=== PATIENT | female | born 1960 | race Caucasian/White ===

== ENCOUNTER 2022-09-29 14:03 | Outpatient (CLI) | payer BC, SELFPAY ==
--- OUTSIDE RECORDS SUMMARY | 2022-09-29 14:06 | XMS_ITS | Clinical Summary ---
:1960 Author Organization [facility] [place] [address] Care Team Providers Name Role Phone Ann Moseley Primary Care Provider Unavaila ble Allergies Active Allergy Reactions Severity Noted Date Comments Cefoxitin Hives Cephalosporins Hives 06/24/2007 Codeine Nausea And Vomiting 06/24/2007 Tioconazole Itching 11/05/2009 Morphine Hives, Itching 06/24/2007 Sulfa (Sulfonamide Other - Describe In 06/24/2007 Ot her reaction(s): Antibiotics) Comment Field Other (see comments) Blurred vision vision problem s Sulfamethoxazole-Trimethop Other - Describe In rim Comment Field Sulfasalazine Other - Describe In 06/24/2007 vision problems Comment Field Medications Medication Sig Dispensed Refills Start Date End Date Status FOLIC ACID 1 MG TAB take 1 tablet (1 0 06/24/2007 Active mg) by oral route once daily omega-3 fatty Take 1 capsule by 0 09/30/2010 Active acids-vitamin E (FISH mouth once daily. OIL) 1,000 mg Cap cholecalciferol Take 1,000 Units 0 Active (VITAMIN D3) 1,000 by mouth once unit capsule daily. ascorbic acid (VITAMIN Take 500 mg by 0 Active C) 500 mg tablet mouth once daily. vitamin e 400 unit Take 400 Units by 0 Active capsule mouth once daily. ibuprofen (ADVIL; Take 400 mg by 0 Active MOTRIN) 200 mg tablet mouth every 4 hours if needed. calcium carbonate-vit Take 1 Tablet by 180 Tablet 3 10/07/2021 Active D3, 600 mg-400 units, mouth 2 times (CALTRATE PLUS 600 daily. MG-400 UNIT TABLET) tabletIndications: Osteopenia, unspecified location methylphenidate HCl Take 1 tablet by 30 Tablet 0 10/07/2021 Active (RITALIN) 5 mg mouth once daily tabletIndications: as needed for Fatigue, unspecified fatigue. type, Systemic lupus erythematosus, unspecified SLE type, unspecified organ involvement status (HC) methylphenidate, 30-70 Take 1 Capsule 90 Capsule 0 10/07/2021 Active multiphase, (METADATE (20 mg) by mouth CD) 20 mg once daily. capsuleIndications: Systemic lupus erythematosus, unspecified SLE type, unspecified organ involvement status (HC) fluticasone Inhale 1 Puff by 180 Each 0 01/01/2022 Active propion-salmeteroL mouth 2 times (ADVAIR) 250-50 daily. mcg/Dose diskus inhalerIndications: Dry cough ketoconazole 2% 0 09/10/2021 Act pasquale shampoo (NIZORAL) 2 % shampoo clobetasol 0.05% 0 09/10/2021 Ac tive TOPICAL (TEMOVATE) 0.05 % external solution alendronate (Fosamax) Take 1 Tablet (70 13 Tablet 3 02/26/2022 Active 70 mg mg) by mouth once tabletIndications: a week in the Osteopenia, morning. Take on unspecified location empty stomach with full glass of water. Do not lie down for 1 hr. nitrofurantoin One tablet as 90 capsule. 1 02/26/2022 Active macrocrystaL needed after (Macrodantin) 50 mg intercourse capsuleIndications: Cystitis omeprazole (PRILOSEC) TAKE 1 CAPSULE 90 Capsule 3 02/26/2022 Active 40 mg Delayed-Release DAILY IF NEEDED capsuleIndications: Gastroesophageal reflux disease, unspecified whether esophagitis present traMADoL (ULTRAM) 50 Take one tablet 10 tablet. 0 02/26/2022 Active mg tabletIndications: by mouth once Migraine syndrome daily as needed for migraine traZODone (DESYREL) 50 Take 1-2 Tablets 90 Tablet 3 02/26/2022 Active mg tabletIndications: (50-100 mg) by Insomnia, unspecified mouth at bedtime. type Active Problems Problem Noted Date Special screening for malignant neoplasms, colon 08/05 Therapeutic opioid induced constipation 03/20/2016 Neck pain, acute 03/15/2016 Chest pain 05/16/2015 Steroid long-term use 09/06/2012 Symptomatic menopausal or female climacteric states Vaginitis and vulvovaginitis, unspecified 09/30/2010 Postmenopausal atrophic vaginitis 09/30/2010 Headache(784.0) 06/24/2007 Other chronic cystitis 06/24/2007 Lupus erythematosus, with steroid-dependence 6 Overview: Lupus. She has been managed by rheumatol eugene. Last follow-up 07/2020, note reviewed. She has been on plaquenil, prednisone and azathioprine in the past. Stopped due to side effects and managing symptoms a t this time. Has chronic fatigue and is on Metadate and prn Ritalin. Rheumatology recom Acute sinusitis, unspecified 06/23/2006 Polyp of colon Immunizations Name Administration Dates Next Due Influenza Virus, Unspecified 09/13/2014, 09/12/2014, 013 Influenza, IIV3 (Age >=3 years) 09/12/2014, 12/09/2012 Influenza, IIV4 09/13/2014, 12/09/2012 Pneumococcal Poly,23-Valent (Pneumovax) 10/07/2021 Tdap 06/27/2020, 09/30/2010 Zoster (Shingrix-RZV, recombinant) 10/29/2020, 06/27/2020 Zoster (Zostavax-ZVL, live) 11/07/2013 Family History Medical History Relation Name Comments Cancer-prostate Father Dementia Father Hypertension Father Cancer Maternal Grandfather Cancer Maternal Grandmother Cancer-ovarian Maternal Grandmother Dementia Mother Stroke Mother Heart Disease Paternal Grandfather Crohn's disease Sister 1 Thyroid Disease Sister 1 Other Sister 2 guilliene barre Asthma Son Cancer-breast No Family History Relation Name Status Comments Brother 1 Alive Brother 2 Alive Daughter 1 Alive Daughter 2 Alive Daughter 3 Alive Father Maternal Grandfather Maternal Grandmother Mother Paternal Grandfather Paternal Grandmother Sister 1 Alive Sister 2 Alive Son Alive Social History Tobacco Use Types Packs/Day Years Used Date Former Smoker Cigarettes 0.5 Quit: 03/14/19 89 Smokeless Tobacco: Never Used Tobacco Cessation: Counseling Given: Yes Alcohol Use Standard Drinks/Week Comments Yes 0 (1 standard drink = 0.6 oz pure alcoho l) Socially Alcohol Habits Answer Date Recorded How often do you have a drink containing alcohol? Not asked How many drinks containing alcohol do you have on a typical Not asked day when you are drinking? How often do you have six or more drinks on one occasion? No t asked Comment: Socially 09/13/2009 Sex Assigned at Date Recorded Not on file Obstetrics History Para Term AB IAB SAB Ectopic Multiple Living Live Births 3 3 2 1 0 0 0 0 1 4 4 Date Outcome GA Total Labor/2nd/3rd Weight Sex Delivery Anes PTL Reta A 1 A5 Name Clin Labor 11/26 Term 37w 3.43 kg F Jodee steff 0d (7 lb 9 ng y oz) 02/22 25w 0.68 kg M Jodee 0d (1 lb 8 ng oz) Comments: cerclage,classical c/s 02/22/1994 25w0d 0.74 kg (1 lb 10 oz) F Living raffi Comments: cerclage,classical c/s 03/06/2000 Term 38w0d 3.03 kg (6 lb 11 oz) F Living derrick Comments: with tubal ligtion Comments Twins Divya 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 07/03/2017 1:40 PM Last Filed Vital Signs Vital Sign Reading Time Taken Comments Blood Pressure 110/66 03/14/2022 11:14 AM CDT Pulse 80 03/14/2022 11:14 AM CDT Temperature 36.6 ??C (97.9 ??F) 06/27/2020 8:43 AM CDT Respiratory Rate 16 02/26/2022 11:45 AM CDT Oxygen Saturation 99% 08/05/2017 10:25 AM CDT Inhaled Oxygen Concentration - - Weight 62.2 kg (137 lb 3.2 oz) 03/14/2022 11:14 AM CDT Height 169 cm (5' 6.54) 10/07/2021 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 Body Mass Index 21.79 10/07/2021 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 Plan of Treatment Health Maintenance Due Date Last Done Comments COVID-19 vaccine series (#1) 02/26/1961 Influenza for age 50-64 07/31/2022 09/13/2014, 09/13/2014, 09/12/2014, Additional history exists Colonoscopy through age 75 08/05/2022 08/05/2017, , 10/24/2009 BMI (ht and wt on same day) for 10/07/2022 10/07/2021, 12/11/2019, age 18+ 06/27/2020, Additional history exists Depression screening for age 12+ 10/07/2022 10/07/2021, , 11/29/2018, Additional history exists Mammogram for age 45-75 10/07/2022 10/07/2021, 08/14/2020, 08/03/2019, Additional history exists Pap test for age 21-65 06/27/2025 06/27/2020, 06/27/2020, 07/03/2017, Additional history exists Lipids for age 45-75 10/07/2026 10/07/2021, 06/27/2020, 11/25/2018, Additional history exists Tetanus booster 06/27/2030 06/27/2020, 09/30/2010 Hepatitis C screening for age Completed 06/27/2020 18-79 Tdap Completed 06/27/2020, 09/30/2010 Zoster (shingles) series for age Completed 10/29/2020, , 50+ 11/07/2013 Results Not on filefrom Last 3 Months Insurance Payer Benefit Plan / Subscriber ID Effective Dates Phone Addre ss Type Group BLUE CROSS BLUE CROSS OF [id number] 2021-Present [address] [address] [place] [address] Advance Directives Latest Code Status on File Code Status Date Activated Date Inactivated Comments Full Code 08/05/2017 9:10 AM 08/06/2017 2:32 AM Full Code 03/15/2016 2:19 PM 03/19/2016 8:24 PM Full Code 05/16/2015 2:29 AM 05/16/2015 6:28 PM Code Status Discussion: Not Discussed Care Teams Shredding Specialist Relationship Specialty Start Date End Date Ann Moseley PA PCP - General Physician Oil Heat Technician
[2022-09-29 21:58] LABS: Chloride* 100 mmol/L (96-114); Potassium* 4.2 mmol/L (3.6-5.1); Sodium* 139 mmol/L (135-149)
[2022-09-29 22:01] LABS: Blood Urea Nitrogen* 14 mg/dL (7-30); Carbon Dioxide* 27 mmol/L (20-32); Creatinine* 0.6 mg/dL (0.5-1.5); Estimated Glomerular Filt Rate 101 ml/min; Glucose* 87 mg/dL (60-115)
[2022-09-29 22:02] LABS: Calcium* 9.8 mg/dL (8.4-10.6); Magnesium* 2.3 mg/dL (1.5-2.6)
== END 2022-09-29 14:04 | disposition home or self-care (01) ==
PROVIDERS: PCP Nurse Practitioner Family; Visit Provider Nurse Practitioner Family
DX: M79.606 Pain in leg, unspecified (principal)
CPT/HCPCS: 36415; 80048; 83735

== ENCOUNTER 2023-06-01 13:58 | Outpatient (CLI) | payer BC, SELFPAY ==
--- OUTSIDE RECORDS SUMMARY | 2023-06-01 14:00 | XMS_ITS | Continuity of Care Document ---
Author Name Unknown Organization [facility] Address [address] [address] [place] [address] Phone Care Team Providers Care Toy Designer Name Role Phone Stacie ALEX, Katherine Unavailable Unavaila ble Advance Directives Directive Yes / No Effective Date File Name No Information Encounters Encounter Description Practice Location Reason(s) For Visit Diagnoses Date Provider Providers Copied on Encounter [facility], [address] [address], [place], [place], [id number], [place] tel:[phone] [facility] No Information Stacie Murphy . [address] [facility], [facility] [address], [place], [place], [id number], [place]. tel:[phone] Referring Provider: Lina Kirk MD J, [address], [place], [address]. tel:[phone] Family History Family Member Type Diagnosis Age At Onset No Information Payers Payer name Insurance type Covered democrat ID Authoriza tion(s) No Information Social History Type Description Quantity Date Captured Comments Sex Female Smoking Status No Information Chief Complaint And Reason For Visit No Information Reason For Referral Reason For Referral No Information Plan Of Treatment Date Type Action Status No Information History Of Present Illness Encounter Date Complaint History Of Prese nt Illness No Information Functional Status Date Functional Assessmen t No Information Instructions Date Instruction Additional Infor mation No Information Assessments Type Assessment Date No Information Patient Care Teams Name Effective Dates (start - stop) Status Members No Information
--- OUTSIDE RECORDS SUMMARY | 2023-06-01 14:00 | XMS_ITS | Continuity of Care Document ---
Author Name Unknown Organization [facility] Address [address] [place] [address] Phone Care Team Providers Care Chemical Lab Technician Name Role Phone Lopez Avalos MD Unavailable Unavailable Allergies, Adverse Reactions, Alerts Substance Reaction Status Criticality morphine Active No Information codeine Active No Information Cephalosporins Active No Informatio n Medications Medication Instructions Dosage Effective Dates (start - stop) Status Comments Metadate ER 20 mg tablet,extended release take 1 tablet by oral route every day 20 MG - Active Please dispense 20 mg capsules rather than tablets. omeprazole 20 mg capsule,delayed release take 1 capsule by oral route every day before a meal 20 MG - Active methylphenidate 5 mg tablet take 1 tablet by oral route 3 times every day 5 MG - Active Calcium 600 600 mg calcium (1,500 mg) tablet take 1 Tablet by Oral route every day 1 Tablet - Active Samantha Allergy 60 mg tablet take 1 tablet by oral route 2 times every day 60 MG - Active folic acid 800 mcg tablet take 1 tablet by oral route every day 0.8 MG - Active Vitamin C 1,000 mg tablet take 1 tablet by oral route every morning 1 tablet - Active Vitamin D3 2,000 unit capsule take 1 Capsule by Oral route once 1 Capsule - Active vitamin E 400 unit capsule take 1 by Oral route every day 1 - Active Procedures Procedure Date Office/Outpatient Visit, New Advance Directives Directive Yes / No Effective Date File Name No Information Encounters Encounter Description Practice Location Reason(s) For Visit Diagnoses Date Provider Providers Copied on Encounter [facility], [address], [place], [address], [place] tel:[phone] [facility] , No Information Jul- 0 Robbie Marroquin. [facility] [address], [place], [address], [place]. tel:[phone] [facility], [facility], [place], [address], [place] tel:[phone] [facility] , No Information Sep- 0 0 Robbie Marroquin. [facility] [address], [place], [address], [place]. tel:[phone] Office/Outpa tient Visit, New [facility], [address], [place], [address], [place] tel:[phone] [facility] , SLE (chief complaint) Chronic fatigue (chief complaint) Systemic lupus erythematosu s, unspecifiedO ther fatigue Jul- 0 Robbie Marroquin. [facility] [address], [place], [address], [place]. tel:[phone] Referring Provider: Lopez Blackwell, [facility] [address], [place], [address]. tel:[phone] Family History Family Member Type Diagnosis Age At Onset Daughter Problem Thyroid disorder Daughter Problem Guillain-Santos??? Daughter Problem Crohn's disease Payers Payer name Insurance type Covered republican ID Jose Miguel carlisle(soren Lund CI [id number] Social History Type Description Quantity Date Captured Comments Sex Female Smoking Status No Information Chief Complaint And Reason For Visit No Information Reason For Referral Reason For Referral No Information Plan Of Treatment Date Type Action Status No Information History Of Present Illness Encounter Date Complaint History Of Prese nt Illness Chronic fatigue SLE Functional Status Date Functional Assessmen t No Information Instructions Date Instruction Additional Infor jose I recommend pursuing sleep medicine evaluation. I do not feel qualified to prescribe amphetamines chronically for the patient. After discussion of these issues, I am in agreement with refilling a three-month supply of the methylphenidate agents while the patient pursues transfer of these to a qualified provider, for example a sleep medicine physician. Related to Other fatigue Continue as needed l ow-dose prednisone. The patient has required very little of this agent for many years.I urged the patient to update her BMD study through her primary provider if it has not been done within the last 2-3 years, while continuing to attend to adequate calcium and vitamin D intake, as well as regular weightbearing activity/exercise.Continue cold protection and sun protection measures.Periodic laboratory testing will be performed to monitor the pt for cytopenias, renal abnormalities and suppressed component values. Many of these were recently performed in late May and were only remarkable for mildly low WBC. Related to Systemic lupus erythematosus, unspecified Assessments Type Assessment Date No Information Patient Care Teams Name Effective Dates (start - stop) Status Members No Information
== END 2023-06-01 13:59 | disposition home or self-care (01) ==
LOC: KYNREF 13:58
PROVIDERS: PCP Nurse Practitioner Family; Visit Provider Nurse Practitioner Family
DX: L02.511 Cutaneous abscess of right hand (principal)
CPT/HCPCS: 87070; 87186

== ENCOUNTER 2023-11-26 10:08 | Outpatient (CLI) | payer BC, SELFPAY | END 2023-11-26 10:09 | disposition home or self-care (01) | LOC: NFLDREF 11-27 08:19 | PROVIDERS: PCP Nurse Practitioner Family; Referring Provider Nurse Practitioner Family; Visit Provider Nurse Practitioner Family | DX: M32.9 Systemic lupus erythematosus, unspecified (principal); Z13.0 Encounter for screening for diseases of the blood and blood-forming organs and certain disorders involving the immune mechanism; Z13.220 Encounter for screening for lipoid disorders; Z13.228 Encounter for screening for other metabolic disorders; Z13.6 Encounter for screening for cardiovascular disorders | CPT/HCPCS: 80053; 80061; 85610; 85613; 85730 ==

== ENCOUNTER 2025-01-13 11:01 | Outpatient (CLI) | payer MEDICARE, SELFPAY | END 2025-01-13 11:02 | disposition home or self-care (01) | PROVIDERS: PCP Nurse Practitioner Family; Visit Provider Nurse Practitioner Family | DX: M32.9 Systemic lupus erythematosus, unspecified (principal); Z13.6 Encounter for screening for cardiovascular disorders; Z13.0 Encounter for screening for diseases of the blood and blood-forming organs and certain disorders involving the immune mechanism | CPT/HCPCS: 80053; 80061; 85025; 85651; 86140 ==